=== PATIENT | male | born 1965 | race Caucasian/White ===

== ENCOUNTER 2017-09-10 19:30 | Emergency (ER) | payer OTHER ==
--- NOTE | 2017-09-10 20:12 | PDOC ---
Rapid Medical Evaluation Time Seen by Provider: 09/10/17 20:08 Medical Evaluation: 09/10/17 20:09 Pt presents to the ED: rt wrist injury 2 weeks ago while playing soccer Pt on brief exam:FROM of rt wrist, Pt ordered for: xray Pt to proceed to the ED Discharge Disposition - Diagnosis Wrist pain, right - Referrals - Patient Instructions - Post Discharge Activity
[2017-09-10 20:14] VITALS: BP 110/73; PULSE 84; TEMP 97.8; BMI 31.8
--- NOTE | 2017-09-10 20:38 | PDOC ---
History of Present Illness - General Chief Complaint: Injury Stated Complaint: RT HAND INJURY Time Seen by Provider: 09/10/17 20:08 History Source: Patient Exam Limitations: No Limitations - History of Present Illness Initial Comments: 09/10/17 20:37 52-year-old male who is right hand dominant presents to the emergency department complaining of right wrist pain. Patient states while playing soccer 2 weeks ago, he slipped and fell onto the outstretched of his right hand. Pain is described as 5/10 dull nonradiating intermittent discomfort. Pain is exacerbated on movement and alleviated at rest. Patient denies any head, neck or back injuries. Patient denies extremity numbness or tingling sensation. Timing/Duration: other (x2 weeks ago) Past History - Past Medical History Home Medications: Ambulatory Orders NK [No Known Home Medication] 09/10/17 - Suicide/Smoking/Psychosocial Hx Smoking History: Never smoked *Physical Exam - Vital Signs Last Vital Signs Temp Pulse Resp BP Pulse Ox 97.8 F 84 20 110/73 98 09/10/17 20:12 09/10/17 20:12 09/10/17 20:12 09/10/17 20:12 09/10/17 20:12 ED Treatment Course - RADIOLOGY Radiograph Interpretation: 09/10/17 20:36 Xray right wrist 3v distal non displaced radius fx *DC/Admit/Observation/Transfer Diagnosis at time of Disposition: Wrist pain, right Right wrist fracture Qualifiers: Encounter type: initial encounter Fracture type: closed Qualified Code(s): S62.101A - Fracture of unspecified carpal bone, right wrist, initial encounter for closed fracture - Discharge Dispostion Disposition: HOME Condition at time of disposition: Stable Admit: No - Referrals Referrals: Jhony Borges MD [Staff Physician] - - Patient Instructions Printed Discharge Instructions: DI for Wrist Fracture Additional Instructions: Ice; 20 mins on alternating with 20 mins off for 48 hours while awake. Rest Elevate Follow up with your orthopedic surgeon or the one listed on the discharge form. Return to the ER for severe/persistent/worsening symptoms, extremity numbness/ tingling sensation. - Post Discharge Activity Progress Note - Progress Note Progress Note: Right sugar tong/ortho glass 4"
== END 2017-09-10 20:41 | disposition home or self-care (01) ==
LOC: JERFT 19:30
DX: S52.591A Other fractures of lower end of right radius, initial encounter for closed fracture (principal); W17.89XA Other fall from one level to another, initial encounter; Y93.66 Activity, soccer; Y92.322 Soccer field as the place of occurrence of the external cause; Y99.8 Other external cause status
CPT/HCPCS: 73110-TC-RT; 99282-25

== ENCOUNTER 2024-01-26 17:53 | Emergency (ER) | payer OTHER ==
[2024-01-26] MEDS ORDERED: ACETAMINOPHEN 325 MG TABLET (FP) ONE (19:25)
[2024-01-26] MEDS: ACETAMINOPHEN 325 MG TABLET (FP) PO ONE (19:27)
[2024-01-26 20:40] VITALS: BP 112/77; PULSE 79; RESP 18; TEMP 98.1; BMI 35.2
== END 2024-01-26 22:17 | disposition home or self-care (01) ==
LOC: FER 17:53
DX: M79.671 Pain in right foot (principal); W50.0XXA Accidental hit or strike by another person, initial encounter; Y93.66 Activity, soccer
CPT/HCPCS: 73610-TC-RT-FY; 73630-TC-RT-FY; 99283-25

== ENCOUNTER 2024-09-11 21:14 | Inpatient (IN) | payer OTHER ==
[2024-09-11] MEDS ORDERED: ACETAMINOPHEN INJECTION 100 ML ONE (22:09)
[2024-09-11] MEDS: ACETAMINOPHEN 1000 MG/100 ML BAG IVPB ONE (22:20)
[2024-09-11 22:24] LABS: BASO % 0.2 % (0-2.0); EOS % 0.6 % (0-4.5); HEMATOCRIT 40.5 % (35.4-49); HEMOGLOBIN 13.6 GM/dL (11.7-16.9); LYMPH % 15.4 % (8-40); MCH 30.6 pg (25.7-33.7); MCHC 33.6 g/dl (32.0-35.9); MEAN CELL VOLUME 91.1 fl (80-96); MEAN PLT VOLUME 8.8 fl (7.5-11.1); MONO % 7.4 % (3.8-10.2); NEUT % 76.4 % (42.8-82.8); PLATELET COUNT 198 10^3/uL (134-434); RBC 4.45 M/mm3 (4.00-5.60); WHITE BLOOD COUNT 9.4 K/mm3 (4.0-10.0)
[2024-09-11 22:48] LABS: ACTIVATED PTT 38.6 SECONDS (25.2-36.5); INR 1.02 (0.83-1.09); PROTHROMBIN TIME (PATIENT) 11.7 SEC (9.7-13.0)
[2024-09-11 22:49] LABS: POTASSIUM 3.4 mmol/L (3.5-5.1)
[2024-09-11 22:51] LABS: BLOOD UREA NITROGEN 16.2 mg/dL (7-18); CALCIUM 8.3 mg/dL (8.5-10.1)
[2024-09-11 22:54] LABS: CREATININE 0.8 mg/dL (0.55-1.3)
[2024-09-12] MEDS: ceFAZolin SODIUM 1 GM VIAL IVPB ONE
[2024-09-12 00:18] LABS: POTASSIUM 3.7 mmol/L (3.5-5.1)
[2024-09-12 00:20] LABS: ALBUMIN 3.7 g/dl (3.4-5.0); BLOOD UREA NITROGEN 14.2 mg/dL (7-18); CALCIUM 8.3 mg/dL (8.5-10.1)
[2024-09-12 00:24] LABS: CREATININE 0.7 mg/dL (0.55-1.3)
[2024-09-12 00:25] LABS: BILIRUBIN,TOTAL 0.4 mg/dL (0.2-1); TOT PROT 7.3 g/dl (6.4-8.2)
[2024-09-12] MEDS: SODIUM CHLORIDE 1,000 ML IV SCH (00:58)
[2024-09-12] MEDS ORDERED: PIPERACILLIN/TAZOB 3.375 GM 3.375 GM/50 ML BAG IVPB ONE (01:01)
[2024-09-12] MEDS ORDERED: KETOROLAC TROMETHAMINE 15 MG/ML VIAL ONE (01:01)
[2024-09-12] MEDS: KETOROLAC TROMETHAMINE 15 MG/ML VIAL IVPUSH ONE (01:06)
[2024-09-12] MEDS: PIPERACILLIN/TAZOB 3.375 GM 3.375 GM in DEXTROSE 5%-WATER - 50 ML IVPB ONE (01:06)
[2024-09-12] MEDS ORDERED: MORPHINE SULFATE 2 MG/ML SYRINGE IVPUSH PRN (01:30)
[2024-09-12] MEDS ORDERED: DOCUSATE SODIUM 100 MG CAPSULE (FP) PO PRN (01:30)
[2024-09-12] MEDS ORDERED: PIPERACILLIN/TAZOB 3.375 GM 3.375 GM in DEXTROSE 5%-WATER - 50 ML IVPB SCH (07:00)
[2024-09-12] MEDS: ACETAMINOPHEN 1000 MG/100 ML BAG IVPB PRN (07:06)
[2024-09-12] MEDS: PIPERACILLIN/TAZOB 3.375 GM 3.375 GM in DEXTROSE 5%-WATER - 50 ML IVPB SCH (10:04)
[2024-09-12 10:48] LABS: BASO % 0.1 % (0-2.0); EOS % 0.6 % (0-4.5); HEMATOCRIT 40.3 % (35.4-49); HEMOGLOBIN 13.3 GM/dL (11.7-16.9); MCH 30.4 pg (25.7-33.7); MEAN PLT VOLUME 9.2 fl (7.5-11.1); MONO % 11.1 % (3.8-10.2); NEUT % 68.2 % (42.8-82.8); PLATELET COUNT 209 10^3/uL (134-434); RBC 4.38 M/mm3 (4.00-5.60); WHITE BLOOD COUNT 10.1 K/mm3 (4.0-10.0)
[2024-09-12 11:28] VITALS: BMI 32.1
[2024-09-12] MEDS ORDERED: BUPIVACAINE HCL/PF 0.25% (2.5MG/ML) 10 ML VIAL ONE (11:41)
[2024-09-12] MEDS ORDERED: HEPARIN NA (PORCINE) 5,000 UNITS/ML 1ML VIAL ONE (11:41)
[2024-09-12] MEDS ORDERED: LIDOCAINE HCL/PF 2% SDV 5ML VIAL ONE (12:02)
[2024-09-12] MEDS ORDERED: ROCURONIUM BROMIDE 50 MG/5 ML SYRINGE ONE ×2 (12:02→13:20)
[2024-09-12] MEDS ORDERED: PROPOFOL 20 ML ONE (12:03)
[2024-09-12] MEDS ORDERED: MIDAZOLAM HCL 2 MG/2 ML SINGLE DOSE VIAL ONE (12:03)
[2024-09-12] MEDS ORDERED: INDOCYANINE GREEN 25 MG/10 ML VIAL IVPUSH ONE (12:40)
[2024-09-12] MEDS: BUPIVACAINE HCL/PF 0.25% (2.5MG/ML) 10 ML VIAL IJ ONE ×3 (13:19)
[2024-09-12] MEDS ORDERED: SUGAMMADEX SODIUM 200 MG/2 ML VIAL ONE (13:57)
[2024-09-12] MEDS ORDERED: ONDANSETRON 4 MG/2 ML VIAL IVPUSH PRN ×2 (13:59→16:42)
[2024-09-12] MEDS ORDERED: HYDROmorphone HCL CARPU-JECT 2 MG/1 ML DISP.SYRIN IVPB PRN (16:55)
[2024-09-12] MEDS: oxyCODONE HCL 5 MG TABLET PO PRN (19:35)
[2024-09-12] MEDS ORDERED: PIPERACILLIN/TAZOB 3.375 GM 50 ML IVPB SCH (21:00)
[2024-09-12] MEDS: PIPERACILLIN/TAZOB 3.375 GM 50 ML IVPB SCH (21:06)
[2024-09-12] MEDS: ACETAMINOPHEN 1000 MG/100 ML BAG IVPB SCH (21:50)
[2024-09-13] MEDS: SODIUM CHLORIDE 1,000 ML IV SCH (04:13)
[2024-09-13] MEDS: PIPERACILLIN/TAZOB 3.375 GM 3.375 GM in DEXTROSE 5%-WATER - 50 ML IVPB SCH (05:34)
[2024-09-13] MEDS: ACETAMINOPHEN 1000 MG/100 ML BAG IVPB PRN (09:41)
[2024-09-13 09:53] LABS: HEMATOCRIT 39.2 % (35.4-49); HEMOGLOBIN 13.3 GM/dL (11.7-16.9); LYMPH % 7.7 % (8-40); MCH 31.1 pg (25.7-33.7); MCHC 33.8 g/dl (32.0-35.9); MEAN CELL VOLUME 91.8 fl (80-96); MEAN PLT VOLUME 9.1 fl (7.5-11.1); MONO % 12.8 % (3.8-10.2); NEUT % 79.5 % (42.8-82.8); PLATELET COUNT 206 10^3/uL (134-434); RBC 4.27 M/mm3 (4.00-5.60); WHITE BLOOD COUNT 18.8 K/mm3 (4.0-10.0)
[2024-09-13 10:32] LABS: POTASSIUM 3.4 mmol/L (3.5-5.1)
[2024-09-13 10:46] LABS: ALBUMIN 3.1 g/dl (3.4-5.0); BLOOD UREA NITROGEN 11.3 mg/dL (7-18); CALCIUM 8.1 mg/dL (8.5-10.1)
[2024-09-13 10:50] LABS: CREATININE 0.8 mg/dL (0.55-1.3)
[2024-09-13 10:51] LABS: BILIRUBIN,TOTAL 1.8 mg/dL (0.2-1); TOT PROT 6.8 g/dl (6.4-8.2)
[2024-09-13] MEDS: HYDROmorphone HCL CARPU-JECT 2 MG/1 ML DISP.SYRIN IVPUSH PRN (13:37)
[2024-09-13] MEDS: SIMETHICONE 80 MG TAB.CHEW (FP) PO PRN (13:38)
[2024-09-13] MEDS: PANTOPRAZOLE 40 MG TABLET PO SCH (13:38)
[2024-09-13] MEDS: POTASSIUM CHLORIDE ORAL LIQUID 20 MEQ/15 ML PO ONE (22:31)
[2024-09-14] MEDS: PIPERACILLIN/TAZOB 3.375 GM 50 ML IVPB SCH (10:38)
[2024-09-14 12:21] LABS: BASO % 0.1 % (0-2.0); EOS % 0.1 % (0-4.5); HEMATOCRIT 36.8 % (35.4-49); HEMOGLOBIN 12.3 GM/dL (11.7-16.9); MCH 30.8 pg (25.7-33.7); MCHC 33.5 g/dl (32.0-35.9); MEAN CELL VOLUME 91.9 fl (80-96); MEAN PLT VOLUME 8.4 fl (7.5-11.1); MONO % 10.6 % (3.8-10.2); NEUT % 80.2 % (42.8-82.8); PLATELET COUNT 179 10^3/uL (134-434); RDW 13.4 % (11.9-15.9)
[2024-09-14 12:47] LABS: POTASSIUM 3.6 mmol/L (3.5-5.1)
[2024-09-14 12:49] LABS: ALBUMIN 2.7 g/dl (3.4-5.0); CALCIUM 7.9 mg/dL (8.5-10.1)
[2024-09-14 12:50] LABS: BLOOD UREA NITROGEN 9.4 mg/dL (7-18)
[2024-09-14 12:53] LABS: CREATININE 0.8 mg/dL (0.55-1.3)
[2024-09-14 12:54] LABS: BILIRUBIN,TOTAL 2.4 mg/dL (0.2-1); TOT PROT 6.3 g/dl (6.4-8.2)
[2024-09-14] MEDS: ENOXAPARIN NA (PORCINE) 40 MG/0.4 ML DISP.SYRIN SQ SCH (18:39)
[2024-09-14] MEDS: DOCUSATE SODIUM 100 MG CAPSULE (FP) PO PRN (19:55)
[2024-09-15 09:17] LABS: BASO % 0.2 % (0-2.0); EOS % 0.5 % (0-4.5); HEMATOCRIT 32.9 % (35.4-49); HEMOGLOBIN 11.3 GM/dL (11.7-16.9); LYMPH % 10.9 % (8-40); MCH 31.4 pg (25.7-33.7); MCHC 34.4 g/dl (32.0-35.9); MEAN CELL VOLUME 91.4 fl (80-96); MEAN PLT VOLUME 8.4 fl (7.5-11.1); MONO % 11.5 % (3.8-10.2); NEUT % 76.9 % (42.8-82.8); PLATELET COUNT 194 10^3/uL (134-434); RDW 13.4 % (11.9-15.9)
[2024-09-15 09:58] LABS: POTASSIUM 3.6 mmol/L (3.5-5.1)
[2024-09-15 10:50] LABS: ALBUMIN 2.5 g/dl (3.4-5.0)
[2024-09-15 10:51] LABS: CALCIUM 8.1 mg/dL (8.5-10.1)
[2024-09-15 10:52] LABS: BLOOD UREA NITROGEN 10.4 mg/dL (7-18)
[2024-09-15 10:55] LABS: BILIRUBIN,TOTAL 1.4 mg/dL (0.2-1)
[2024-09-15 10:56] LABS: CREATININE 0.6 mg/dL (0.55-1.3); TOT PROT 6.2 g/dl (6.4-8.2)
[2024-09-15] MEDS: ACETAMINOPHEN 325 MG TABLET (FP) PO PRN (13:30)
[2024-09-15] MEDS: TAMSULOSIN HCL 0.4 MG CAP PO ONE (21:54)
[2024-09-15] MEDS: ACETAMINOPHEN 1000 MG/100 ML BAG IVPB ONE (23:59)
[2024-09-16 08:14] LABS: BASO % 0.1 % (0-2.0); EOS % 0.6 % (0-4.5); HEMATOCRIT 34.3 % (35.4-49); HEMOGLOBIN 11.8 GM/dL (11.7-16.9); LYMPH % 8.3 % (8-40); MCH 31.2 pg (25.7-33.7); MCHC 34.3 g/dl (32.0-35.9); MEAN PLT VOLUME 8.2 fl (7.5-11.1); MONO % 11.1 % (3.8-10.2); NEUT % 79.9 % (42.8-82.8); PLATELET COUNT 251 10^3/uL (134-434); RBC 3.77 M/mm3 (4.00-5.60); RDW 13.4 % (11.9-15.9); WHITE BLOOD COUNT 9.9 K/mm3 (4.0-10.0)
[2024-09-16 08:16] LABS: POTASSIUM 3.4 mmol/L (3.5-5.1)
[2024-09-16 08:24] LABS: ALBUMIN 2.7 g/dl (3.4-5.0); BLOOD UREA NITROGEN 11.2 mg/dL (7-18)
[2024-09-16 08:28] LABS: CREATININE 0.7 mg/dL (0.55-1.3)
[2024-09-16 08:29] LABS: BILIRUBIN,TOTAL 1.9 mg/dL (0.2-1); TOT PROT 6.5 g/dl (6.4-8.2)
[2024-09-16] MEDS: ACETAMINOPHEN 1000 MG/100 ML BAG IVPB SCH (10:54)
[2024-09-16] MEDS ORDERED: ACETAMINOPHEN 325 MG TABLET (FP) PO SCH (11:00)
[2024-09-16] MEDS: POTASSIUM CHLORIDE ORAL LIQUID 20 MEQ/15 ML PO ONE (12:20)
[2024-09-16] MEDS: POLYETHYLENE GLYCOL (HEALTHYLAX) 3350 17 GM PACKET PO SCH (12:21)
[2024-09-17 07:49] LABS: HEMATOCRIT 34.1 % (35.4-49); HEMOGLOBIN 11.6 GM/dL (11.7-16.9); MCH 31.2 pg (25.7-33.7); MCHC 33.9 g/dl (32.0-35.9); MEAN PLT VOLUME 7.6 fl (7.5-11.1); PLATELET COUNT 283 10^3/uL (134-434); RBC 3.71 M/mm3 (4.00-5.60); RDW 13.6 % (11.9-15.9); WHITE BLOOD COUNT 6.8 K/mm3 (4.0-10.0)
[2024-09-17 08:09] LABS: POTASSIUM 3.4 mmol/L (3.5-5.1)
[2024-09-17 08:14] LABS: ALBUMIN 2.6 g/dl (3.4-5.0); BLOOD UREA NITROGEN 7.5 mg/dL (7-18); MAGNESIUM 2.3 mg/dL (1.8-2.4)
[2024-09-17 08:17] LABS: CREATININE 0.7 mg/dL (0.55-1.3)
[2024-09-17 08:18] LABS: BILIRUBIN,TOTAL 1.1 mg/dL (0.2-1)
[2024-09-17 08:19] LABS: TOT PROT 6.4 g/dl (6.4-8.2)
[2024-09-17] MEDS: POTASSIUM CHLORIDE ORAL LIQUID 20 MEQ/15 ML PO SCH (10:25)
[2024-09-18] MEDS: oxyCODONE HCL 5 MG TABLET PO PRN (03:33)
[2024-09-18 07:49] LABS: HEMATOCRIT 34.4 % (35.4-49); HEMOGLOBIN 11.5 GM/dL (11.7-16.9); MCH 31.1 pg (25.7-33.7); MCHC 33.5 g/dl (32.0-35.9); MEAN CELL VOLUME 92.8 fl (80-96); MEAN PLT VOLUME 7.1 fl (7.5-11.1); PLATELET COUNT 342 10^3/uL (134-434); RDW 13.6 % (11.9-15.9); WHITE BLOOD COUNT 10.3 K/mm3 (4.0-10.0)
[2024-09-18 12:10] LABS: ALBUMIN 2.8 g/dl (3.4-5.0); BILIRUBIN,TOTAL 0.8 mg/dL (0.2-1); BLOOD UREA NITROGEN 6.5 mg/dL (7-18); CREATININE 0.6 mg/dL (0.55-1.3); POTASSIUM 3.9 mmol/L (3.5-5.1); TOT PROT 6.7 g/dl (6.4-8.2)
[2024-09-18] MEDS: KETOROLAC TROMETHAMINE 15 MG/ML VIAL IVPUSH PRN (16:32)
[2024-09-18] MEDS: POTASSIUM CHLORIDE ORAL LIQUID 20 MEQ/15 ML PO SCH (21:35)
[2024-09-19 08:39] LABS: HEMATOCRIT 35.4 % (35.4-49); HEMOGLOBIN 11.6 GM/dL (11.7-16.9); MCH 30.5 pg (25.7-33.7); MCHC 32.8 g/dl (32.0-35.9); MEAN PLT VOLUME 7.3 fl (7.5-11.1); PLATELET COUNT 395 10^3/uL (134-434); RBC 3.81 M/mm3 (4.00-5.60); RDW 13.6 % (11.9-15.9); WHITE BLOOD COUNT 11.6 K/mm3 (4.0-10.0)
[2024-09-19 09:07] LABS: POTASSIUM 3.9 mmol/L (3.5-5.1)
[2024-09-19 09:13] LABS: ALBUMIN 2.8 g/dl (3.4-5.0); CALCIUM 8.7 mg/dL (8.5-10.1)
[2024-09-19 09:14] LABS: BLOOD UREA NITROGEN 8.2 mg/dL (7-18)
[2024-09-19 09:17] LABS: CREATININE 0.7 mg/dL (0.55-1.3)
[2024-09-19 09:18] LABS: TOT PROT 6.9 g/dl (6.4-8.2)
[2024-09-19 09:38] LABS: BILIRUBIN,TOTAL 2.8 mg/dL (0.2-1)
[2024-09-19] MEDS ORDERED: SUGAMMADEX SODIUM 200 MG/2 ML VIAL ONE (15:09)
[2024-09-19] MEDS ORDERED: MIDAZOLAM HCL 2 MG/2 ML SINGLE DOSE VIAL ONE (15:09)
[2024-09-19] MEDS: INDOMETHACIN 50 MG RECTAL SUPPOSITORY PR ONE (15:26)
[2024-09-19] MEDS ORDERED: LACTATED RINGERS SOLUTION 1,000 ML IV SCH (15:45)
[2024-09-19] MEDS ORDERED: ONDANSETRON 4 MG/2 ML VIAL ONE (17:38)
[2024-09-19] MEDS: ONDANSETRON 4 MG/2 ML VIAL IVPUSH PRN (17:42)
[2024-09-19] MEDS: LACTATED RINGERS SOLUTION 1,000 ML/1,000 ML INFUS.BAG IV SCH (18:28)
[2024-09-20] MEDS: LACTATED RINGERS SOLUTION 1,000 ML/1,000 ML INFUS.BAG IV SCH ×2 (00:08→09:54)
[2024-09-20 08:36] LABS: BASO % 0.2 % (0-2.0); EOS % 1.2 % (0-4.5); HEMATOCRIT 33.7 % (35.4-49); LYMPH % 16.7 % (8-40); MCH 30.7 pg (25.7-33.7); MCHC 32.7 g/dl (32.0-35.9); MEAN CELL VOLUME 93.9 fl (80-96); MEAN PLT VOLUME 7.4 fl (7.5-11.1); MONO % 8.5 % (3.8-10.2); NEUT % 73.4 % (42.8-82.8); PLATELET COUNT 427 10^3/uL (134-434); RBC 3.59 M/mm3 (4.00-5.60); RDW 13.9 % (11.9-15.9); WHITE BLOOD COUNT 9.4 K/mm3 (4.0-10.0)
[2024-09-20 09:02] LABS: POTASSIUM 4.3 mmol/L (3.5-5.1)
[2024-09-20 09:11] LABS: CALCIUM 8.5 mg/dL (8.5-10.1)
[2024-09-20 09:12] LABS: ALBUMIN 2.6 g/dl (3.4-5.0); BLOOD UREA NITROGEN 9.9 mg/dL (7-18)
[2024-09-20 09:15] LABS: CREATININE 0.7 mg/dL (0.55-1.3)
[2024-09-20 09:17] LABS: TOT PROT 6.8 g/dl (6.4-8.2)
[2024-09-20 09:18] LABS: BILIRUBIN,TOTAL 1.8 mg/dL (0.2-1)
[2024-09-20 09:22] LABS: BILIRUBIN,DIRECT 1.3 mg/dL (0.0-0.2)
[2024-09-20] MEDS: ACETAMINOPHEN 1000 MG/100 ML BAG IVPB PRN (11:50)
[2024-09-20] MEDS: SIMETHICONE 80 MG TAB.CHEW (FP) PO ONE (19:27)
[2024-09-20] MEDS: ACETAMINOPHEN 325 MG TABLET (FP) PO ONE (19:27)
[2024-09-21 07:56] LABS: BASO % 0.3 % (0-2.0); EOS % 0.7 % (0-4.5); HEMATOCRIT 34.2 % (35.4-49); HEMOGLOBIN 11.2 GM/dL (11.7-16.9); MCH 30.3 pg (25.7-33.7); MCHC 32.7 g/dl (32.0-35.9); MEAN CELL VOLUME 92.5 fl (80-96); MEAN PLT VOLUME 7.2 fl (7.5-11.1); MONO % 9.5 % (3.8-10.2); NEUT % 73.5 % (42.8-82.8); PLATELET COUNT 489 10^3/uL (134-434); RDW 13.2 % (11.9-15.9); WHITE BLOOD COUNT 13.9 K/mm3 (4.0-10.0)
[2024-09-21 08:10] LABS: POTASSIUM 4.2 mmol/L (3.5-5.1)
[2024-09-21 08:12] LABS: BLOOD UREA NITROGEN 8.9 mg/dL (7-18); CALCIUM 8.6 mg/dL (8.5-10.1)
[2024-09-21 08:13] LABS: ALBUMIN 2.8 g/dl (3.4-5.0)
[2024-09-21 08:16] LABS: CREATININE 0.7 mg/dL (0.55-1.3)
[2024-09-21 08:17] LABS: BILIRUBIN,TOTAL 1.2 mg/dL (0.2-1); TOT PROT 7.3 g/dl (6.4-8.2)
[2024-09-21] MEDS: IBUPROFEN 600 MG TABLET (FP) PO PRN (09:10)
[2024-09-21 21:15] LABS: BASO % 0.2 % (0-2.0); EOS % 0.6 % (0-4.5); HEMATOCRIT 32.1 % (35.4-49); HEMOGLOBIN 10.7 GM/dL (11.7-16.9); LYMPH % 12.8 % (8-40); MCH 30.6 pg (25.7-33.7); MCHC 33.4 g/dl (32.0-35.9); MEAN CELL VOLUME 91.6 fl (80-96); MONO % 10.7 % (3.8-10.2); NEUT % 75.7 % (42.8-82.8); PLATELET COUNT 434 10^3/uL (134-434); RDW 13.7 % (11.9-15.9); WHITE BLOOD COUNT 13.2 K/mm3 (4.0-10.0)
[2024-09-21 21:34] LABS: ALBUMIN 2.5 g/dl (3.4-5.0); CALCIUM 8.1 mg/dL (8.5-10.1)
[2024-09-21 21:35] LABS: BLOOD UREA NITROGEN 9.7 mg/dL (7-18)
[2024-09-21 21:36] LABS: BILIRUBIN,DIRECT 0.6 mg/dL (0.0-0.2)
[2024-09-21 21:38] LABS: CREATININE 0.7 mg/dL (0.55-1.3)
[2024-09-21 21:39] LABS: BILIRUBIN,TOTAL 1.1 mg/dL (0.2-1); TOT PROT 6.5 g/dl (6.4-8.2)
[2024-09-22 08:21] LABS: BASO % 0.2 % (0-2.0); EOS % 0.9 % (0-4.5); HEMOGLOBIN 10.2 GM/dL (11.7-16.9); LYMPH % 13.6 % (8-40); MCH 31.2 pg (25.7-33.7); MCHC 33.9 g/dl (32.0-35.9); MEAN CELL VOLUME 92.2 fl (80-96); MEAN PLT VOLUME 6.8 fl (7.5-11.1); MONO % 13.5 % (3.8-10.2); NEUT % 71.8 % (42.8-82.8); PLATELET COUNT 437 10^3/uL (134-434); RBC 3.25 M/mm3 (4.00-5.60); RDW 13.7 % (11.9-15.9); WHITE BLOOD COUNT 11.9 K/mm3 (4.0-10.0)
[2024-09-22 08:42] LABS: POTASSIUM 4.1 mmol/L (3.5-5.1)
[2024-09-22 08:49] LABS: ALBUMIN 2.3 g/dl (3.4-5.0); CALCIUM 8.5 mg/dL (8.5-10.1); CREATININE 0.7 mg/dL (0.55-1.3)
[2024-09-22 08:50] LABS: BLOOD UREA NITROGEN 9.8 mg/dL (7-18)
[2024-09-22 08:51] LABS: TOT PROT 6.3 g/dl (6.4-8.2)
[2024-09-22] MEDS: ACETAMINOPHEN 500 MG TABLET (FP) PO PRN (21:57)
[2024-09-22] MEDS: URSODIOL 300 MG CAPSULE PO SCH (22:30)
[2024-09-23 06:40] LABS: POTASSIUM 4.2 mmol/L (3.5-5.1)
[2024-09-23 06:47] LABS: CALCIUM 8.3 mg/dL (8.5-10.1)
[2024-09-23 06:48] LABS: ALBUMIN 2.4 g/dl (3.4-5.0); BLOOD UREA NITROGEN 9.6 mg/dL (7-18)
[2024-09-23 06:49] LABS: BASO % 0.1 % (0-2.0); EOS % 0.9 % (0-4.5); HEMATOCRIT 29.3 % (35.4-49); HEMOGLOBIN 9.6 GM/dL (11.7-16.9); LYMPH % 14.2 % (8-40); MCH 30.5 pg (25.7-33.7); MCHC 32.8 g/dl (32.0-35.9); MEAN PLT VOLUME 7.1 fl (7.5-11.1); MONO % 9.5 % (3.8-10.2); NEUT % 75.3 % (42.8-82.8); PLATELET COUNT 489 10^3/uL (134-434); RBC 3.15 M/mm3 (4.00-5.60); RDW 13.6 % (11.9-15.9); WHITE BLOOD COUNT 12.3 K/mm3 (4.0-10.0)
[2024-09-23 06:51] LABS: BILIRUBIN,TOTAL 0.8 mg/dL (0.2-1); CREATININE 0.6 mg/dL (0.55-1.3); TOT PROT 6.4 g/dl (6.4-8.2)
[2024-09-23] MEDS ORDERED: FENTANYL CITRATE/PF 50 MCG/ML VIAL ONE (14:52)
[2024-09-23] MEDS ORDERED: MIDAZOLAM HCL 2 MG/2 ML SINGLE DOSE VIAL ONE (14:52)
[2024-09-23] MEDS: FENTANYL CITRATE/PF 50 MCG/ML VIAL IVPUSH ONE (15:07)
[2024-09-23] MEDS: ENOXAPARIN NA (PORCINE) 40 MG/0.4 ML DISP.SYRIN SQ SCH (17:14)
[2024-09-24 12:05] LABS: HEMATOCRIT 31.8 % (35.4-49); HEMOGLOBIN 10.5 GM/dL (11.7-16.9); MCH 30.5 pg (25.7-33.7); MCHC 32.9 g/dl (32.0-35.9); MEAN CELL VOLUME 92.7 fl (80-96); MEAN PLT VOLUME 7.7 fl (7.5-11.1); PLATELET COUNT 438 10^3/uL (134-434); RBC 3.43 M/mm3 (4.00-5.60); RDW 13.4 % (11.9-15.9); WHITE BLOOD COUNT 10.1 K/mm3 (4.0-10.0)
[2024-09-24 12:26] LABS: POTASSIUM 4.9 mmol/L (3.5-5.1)
[2024-09-24 12:34] LABS: CALCIUM 8.6 mg/dL (8.5-10.1)
[2024-09-24 12:35] LABS: ALBUMIN 2.6 g/dl (3.4-5.0); BLOOD UREA NITROGEN 11.6 mg/dL (7-18)
[2024-09-24 12:38] LABS: CREATININE 0.7 mg/dL (0.55-1.3)
[2024-09-26 07:12] VITALS: RESP 18; TEMP 98.2
[2024-09-26 10:44] VITALS: BP 107/72; PULSE 84
== END 2024-09-26 14:34 | disposition home or self-care (01) | DRG 261 ==
LOC: JER 21:14 → UNDOADMOB 09-12 01:01 → JERBED 09-12 01:01 → J7W 09-12 05:43 → JASUSAT 09-12 11:35 → J7W 09-12 11:49 → JASUSAT 09-12 11:50
PROVIDERS: ADMIT Internal Medicine; ATTEND Internal Medicine
PROC: 0FT44ZZ Resection of Gallbladder, Percutaneous Endoscopic Approach (ICD-10-PCS; 2024-09-12)
PROC: 8E0W4CZ Robotic Assisted Procedure of Trunk Region, Percutaneous Endoscopic Approach (ICD-10-PCS; 2024-09-12)
PROC: 0F798DZ Dilation of Common Bile Duct with Intraluminal Device, Via Natural or Artificial Opening Endoscopic (ICD-10-PCS; 2024-09-19)
PROC: 0FC98ZZ Extirpation of Matter from Common Bile Duct, Via Natural or Artificial Opening Endoscopic (ICD-10-PCS; 2024-09-19)
PROC: 0F9430Z Drainage of Gallbladder with Drainage Device, Percutaneous Approach (ICD-10-PCS; principal; 2024-09-23)
DX: K80.00 Calculus of gallbladder with acute cholecystitis without obstruction (principal); K83.09 Other cholangitis; I10 Essential (primary) hypertension; R10.13 Epigastric pain; R74.8 Abnormal levels of other serum enzymes; K91.89 Other postprocedural complications and disorders of digestive system; T85.9XXA Unspecified complication of internal prosthetic device, implant and graft, initial encounter; Y83.9 Surgical procedure, unspecified as the cause of abnormal reaction of the patient, or of later complication, without mention of misadventure at the time of the procedure
CPT/HCPCS: 36415; 49406; 71046-TC-FY; 74177-TC; 74181-TC; 74330-TC; 76705-TC; 80048; 80053; 82150; 82248; 82962; 83690; 83735; 85025; 85027; 85610; 85730; 86140; 86850; 86900; 86901; 87040; 87070; 87075; 87102; 87116; 87205; 87206; 87210; 88304-TC; 93005; 93010; 94760; 97116-GP; 97161-GP; 99285-25; J0131; J1644; Q9967